=== PATIENT | male | born 1930 | race Caucasian/White ===

== ENCOUNTER 2016-11-23 12:34 | Emergency (ER) | payer MEDICARE, OTHER ==
[2016-11-23 12:43] VITALS: BP 139/65
--- NOTE | 2016-11-23 13:00 | ED Physician Documentation ---
PD HPI OPHTHO - Stated complaint Stated Complaint: LEFT EYE PX - Chief complaint Chief Complaint: Heent - History obtained from History obtained from: Patient - History of Present Illness Timing - onset: Today Timing - duration: Hours (noted onset this morning of eye redness. Was doing some sanding and glueing wood pieces. He thought he might have gotten some sawdust in his eye. He denies rubbing it. noted redness of the eye. Patient does not have persistent FB feeling. He was not doing heavy lifting and did not have sneezing/coughing.) Timing - details: Abrupt onset Location: Left Quality / character: No: Burning, Aching Associated symptoms: Redness, FB sensation (Briefly but not now) Contributing factors: FB (sawdust) Similar symptoms before: Has not had sx before Recently seen: Not recently seen Review of Systems Constitutional: denies: Fever, Chills Eyes: denies: Loss of vision, Decreased vision, Photophobia Nose: denies: Rhinorrhea / runny nose, Congestion Throat: denies: Sore throat Respiratory: denies: Cough Skin: denies: Abrasion (s), Laceration (s) PD PAST MEDICAL HISTORY - Present Medications Home Medications: Ambulatory Orders Medication Instructions Recorded Confirmed Aspirin EC [Ecotrin] 1 tab PO DAILY 11/23/16 11/23/16 Atenolol 25 tab PO DAILY 11/23/16 11/23/16 Dabigatran Etexilate Mesylate 1 tab PO BID 11/23/16 11/23/16 [Pradaxa] Digoxin 250 mcg PO DAILY 11/23/16 11/23/16 Furosemide 40 mg PO DAILY 11/23/16 11/23/16 Glyburide 5 tab PO BID 11/23/16 11/23/16 Lisinopril 10 mg PO DAILY 11/23/16 11/23/16 Potassium Chloride 1 tab PO DAILY 11/23/16 11/23/16 - Allergies Allergies/Adverse Reactions: Allergies Allergy/AdvReac Type Severity Reaction Status Date / Time No Known Drug Allergies Allergy Verified 11/23/16 12:44 PD ED PE NORMAL - Vitals Vital signs reviewed: Yes - General General: Alert and oriented X 3, No acute distress, Well developed/nourished - HEENT HEENT: PERRL, EOMI PD ED PE EXPANDED - Eyes Eyes: Subconj hemorrhage (lateral left from 2 to 6 o'clock position. ), Anterior chambers clear. No: Conj/sclera FB, Corneal abrasion, Fluorescein uptake Results - Vitals Vitals: Vital Signs - 24 hr 11/23/16 12:39 Temperature 36.4 C L Heart Rate 74 Respiratory 18 Rate Blood Pressure 139/65 H O2 Saturation 95 Oxygen O2 Source Room air PD MEDICAL DECISION MAKING - ED course Complexity details: considered differential, d/w patient Departure - Departure Disposition: 01 Home, Self Care Clinical Impression: Subconjunctival hemorrhage Qualifiers: Laterality: left Qualified Code(s): H11.32 - Conjunctival hemorrhage, left eye Clinical Impression: (Ruled Out): Corneal abrasion Condition: Stable Record reviewed to determine appropriate education?: Yes Instructions: ED Eye Injury Subconj Hemorrhage Comments: This should slowly resolve over a week to week and a half. There are no abrasions or lacerations on the surface and so no risk for infection. No antibiotic ointment or such as needed therefore. This was a disruption or break in 1 of the blood vessels under the surface of the eye. Continue usual medications.
== END 2016-11-23 13:22 | disposition home or self-care (01) ==
LOC: ED 12:34
DX: H11.32 Conjunctival hemorrhage, left eye (principal)
CPT/HCPCS: 99282; 99283

== ENCOUNTER 2017-11-05 04:56 | Outpatient (CLI) | payer MEDICARE, OTHER | END 2017-11-05 04:57 | disposition short-term general hospital (02) | LOC: EMS 04:56 | PROVIDERS: ATTEND Surgery | DX: R42 Dizziness and giddiness (principal); R61 Generalized hyperhidrosis; R19.7 Diarrhea, unspecified | CPT/HCPCS: A0170; A0425; A0427 ==